=== PATIENT | male | born 1995 | race American Indian/Alaskan Native ===

== ENCOUNTER 2017-05-25 15:39 | Emergency (ER) | payer SELFPAY ==
[2017-05-25 15:59] VITALS: BP 117/55
--- NOTE | 2017-05-25 16:13 | Emergency Department Report ---
Suture/Staple Removal - [facility] Chief Complaint: Laceration/Recheck/Suture Stated Complaint: STAPLE REMOVAL Time Seen by Provider: 05/25/17 16:11 When Sutures or Solange Placed: 5-7 Days Ago ED Review of Systems ROS: Stated complaint: STAPLE REMOVAL Other details as noted in HPI Comment: All other systems reviewed and negative Constitutional: no symptoms reported Eyes: as per HPI ENT: as per HPI Respiratory: no symptoms reported Cardiovascular: as per HPI Endocrine: no symptoms reported, see HPI Gastrointestinal: as per HPI Genitourinary: as per HPI Musculoskeletal: as per HPI Skin: as per HPI Neurological: as per HPI Psychiatric: as per HPI Hematological/Lymphatic: as per HPI ED Past Medical Hx - Past Medical History Previous Medical History?: No - Surgical History Past Surgical History?: No - Social History Smoking Status: Never Smoker Substance Use Type: None Suture Removal Exam - Exam General: Vital signs noted. No distress. Alert and acting appropriately. Wound: No Pathologic Erythema, No Tenderness, No Drainage, No Pus, No Wound Dehiscence Other Systems: All other systems reviewed and are unremarkable. ED Course Vital Signs 05/25/17 15:57 Temperature 98.5 F Pulse Rate 69 Respiratory 18 Rate Blood Pressure 117/55 O2 Sat by Pulse 97 Oximetry - Reevaluation(s) Reevaluation #1: 05/25/17 16:12 suture removal wo diff ED Recheck MDM - Medical Decision Making suture removal Critical care attestation.: If time is entered above; I have spent that time in minutes in the direct care of this critically ill patient, excluding procedure time. ED Disposition Clinical Impression: Removal of staple Disposition: DC-01 TO HOME OR SELFCARE Is pt being admited?: No Does the pt Need Aspirin: No Condition: Stable Instructions: Staple Care (ED) Time of Disposition: 16:12
== END 2017-05-25 16:18 | disposition home or self-care (01) ==
LOC: ED 15:39
DX: S01.91XD Laceration without foreign body of unspecified part of head, subsequent encounter (principal); X58.XXXD Exposure to other specified factors, subsequent encounter

== ENCOUNTER 2017-10-21 12:07 | Emergency (ER) | payer OTHER ==
[2017-10-21 13:20] VITALS: BP 142/60
--- NOTE | 2017-10-21 14:52 | Emergency Department Report ---
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 Patient stated he has this since he was 16 years old. Patient denies any pain. Patient denies any symptoms. Patient denies any chest pain, shortness of breathe, fever, chills, headache, nausea, vomiting, abdominal pain, mastoid tenderness, or tragus pain. Patient denies any hearing changes or earache. Patient denies any allergies or significant PMH. MD complaint: other (posterior auricular swelling) -: year(s) Severity scale (0 -10): 0 Improves with: none Worsens with: none Associated Symptoms: denies: fever, cough, gum swelling, toothache, pain with swallowing, sore throat, tinnitus, hearing loss, discharge from ear, rhinorrhea - Related Data Allergies Allergy/AdvReac Type Severity Reaction Status Date / Time No Known Allergies Allergy Unverified 05/25/17 15:57 ED Dental HPI - General Chief complaint: Earache Stated complaint: SWOLLEN EAR Time Seen by Provider: 10/21/17 14:51 Source: patient Mode of arrival: Ambulatory Limitations: No Limitations - Related Data Allergies Allergy/AdvReac Type Severity Reaction Status Date / Time No Known Allergies Allergy Unverified 05/25/17 15:57 ED Review of Systems ROS: Stated complaint: SWOLLEN EAR Other details as noted in HPI Constitutional: denies: chills, fever Eyes: denies: eye pain, eye discharge, vision change ENT: denies: ear pain, throat pain Respiratory: denies: cough, shortness of breath, wheezing Cardiovascular: denies: chest pain, palpitations Endocrine: no symptoms reported Gastrointestinal: denies: abdominal pain, nausea, diarrhea Genitourinary: denies: urgency, dysuria Musculoskeletal: denies: back pain, joint swelling, arthralgia Skin: denies: rash, lesions Neurological: denies: headache, weakness, paresthesias Psychiatric: denies: anxiety, depression Hematological/Lymphatic: denies: easy bleeding, easy bruising ED Past Medical Hx - Past Medical History Previous Medical History?: No - Surgical History Past Surgical History?: No - Social History Smoking Status: Never Smoker Substance Use Type: None ED Physical Exam - General Limitations: No Limitations General appearance: alert, in no apparent distress - Head Head exam: Present: atraumatic, normocephalic - Eye Eye exam: Present: normal appearance Pupils: Present: normal accommodation - ENT ENT exam: Present: normal exam, normal orophraynx, mucous membranes moist, TM's normal bilaterally, normal external ear exam - Neck Neck exam: Present: normal inspection, tenderness, full ROM, lymphadenopathy ( bilateral posterior auricular lymph node. Mobile and nontender. No abscess or flutance noted. No induration noted.). Absent: meningismus, thyromegaly - Respiratory Respiratory exam: Present: normal lung sounds bilaterally. Absent: respiratory distress, wheezes, rales, rhonchi, stridor, chest wall tenderness, accessory muscle use, decreased breath sounds, prolonged expiratory - Cardiovascular Cardiovascular Exam: Present: regular rate, normal rhythm, normal heart sounds. Absent: bradycardia, tachycardia, irregular rhythm, systolic murmur, diastolic murmur, rubs, gallop - GI/Abdominal GI/Abdominal exam: Present: soft, normal bowel sounds - Rectal Rectal exam: Present: deferred - Extremities Exam Extremities exam: Present: normal inspection - Back Exam Back exam: Present: normal inspection - Neurological Exam Neurological exam: Present: alert, oriented X3 - Psychiatric Psychiatric exam: Present: normal affect, normal mood - Skin Skin exam: Present: warm, dry, intact, normal color. Absent: rash ED Course Vital Signs 10/21/17 13:16 Temperature 98.1 F Pulse Rate 77 Respiratory 16 Rate Blood Pressure 142/60 O2 Sat by Pulse 98 Oximetry - Reevaluation(s) Reevaluation #1: 10/21/17 16:30 Patient is speaking in full sentences with no signs of distress noted. ED Medical Decision Making - Medical Decision Making This is a 22-year-old male that presents with bilateral posterior auricular lymphadenopathy. Patient is stable and was examined by me. Upon exam, there is no abnormalities. Normal ENT exam. Patient was instructed and referred to a PCP for further evaluation and blood testing. At time of discharge, the patient does not seem toxic or ill in appearance. No acute signs of distress noted. Patient agrees to discharge treatment plan of care. No further questions noted by the patient. Critical care attestation.: If time is entered above; I have spent that time in minutes in the direct care of this critically ill patient, excluding procedure time. ED Disposition Clinical Impression: Posterior auricular lymphadenopathy Disposition: DC- TO HOME OR SELFCARE Is pt being admited?: No Does the pt Need Aspirin: No Condition: Stable Instructions: Lymphadenopathy (ED) Additional Instructions: Follow-up with a primary care doctor in 3-5 days or if symptoms worsen and continue return to emergency room as soon as possible. Referrals: PRIMARY CARE, [Primary Care Provider] - 3-5 Days LELE SCOTT MD [Staff Physician] - 3-5 Days LUCHO BARKLEY MD [Staff Physician] - 3-5 Days [facility] [Outside] - 3-5 Days [facility] [Outside] - 3-5 Days JACQUELINE BENSON MD [Staff Physician] - 3-5 Days Forms: Work/School Release Form(ED)
== END 2017-10-21 16:42 | disposition home or self-care (01) ==
LOC: ED 12:07
DX: R59.0 Localized enlarged lymph nodes (principal)
CPT/HCPCS: 99282

== ENCOUNTER 2018-03-07 21:21 | Emergency (ER) | payer SELFPAY ==
[2018-03-07 22:04] LABS: Basophils # (Auto) 0.1 K/mm3 (0.0-0.1); Basophils % (Auto) 0.6 % (0.0-1.8); Eosinophils # (Auto) 0.2 K/mm3 (0.0-0.4); Eosinophils % (Auto) 1.9 % (0.0-4.3); Hematocrit 39.7 % (35.5-45.6); Hemoglobin 14.1 gm/dl (11.8-15.2); Lymphocytes # (Auto) 2.1 K/mm3 (1.2-5.4); Lymphocytes % (Auto) 23.9 % (13.4-35.0); Mean Corpuscular HGB Conc 36 % (32-34); Mean Corpuscular Hemoglobin 30 pg (28-32); Mean Corpuscular Volume 83 fl (84-94); Monocytes # (Auto) 0.6 K/mm3 (0.0-0.8); Monocytes % (Auto) 7.1 % (0.0-7.3); Platelet Count 221 K/mm3 (140-440); Red Blood Count 4.76 M/mm3 (3.65-5.03); Red Cell Distribution Width 14.3 % (13.2-15.2)
[2018-03-07 22:24] LABS: BUN/Creatinine Ratio 7; Blood Urea Nitrogen 8 mg/dL (9-20); Calcium 9.3 mg/dL (8.4-10.2); Hemolysis Index 3
[2018-03-07 23:25] LABS: Amphetamine Screen,Urine PRESUMPTIVE NEGATIVE; Benzodiazepines Screen,Urine PRESUMPTIVE NEGATIVE; Cocaine Screen,Urine PRESUMPTIVE NEGATIVE; Methadone Screen,Urine PRESUMPTIVE NEGATIVE; Opiate Screen,Urine PRESUMPTIVE NEGATIVE
--- NOTE | 2018-03-08 00:05 | XRay Report ---
FINAL REPORT PROCEDURE: XR CHEST ROUTINE 2V TECHNIQUE: PA and lateral chest radiographs were obtained. CPT 25610 HISTORY: palpitations COMPARISON: No prior studies are available for comparison. FINDINGS: Heart: Normal. Mediastinum/Vessels: Normal. Lungs/Pleural space: Normal. Bony thorax: No acute osseous abnormality. Other: IMPRESSION: Normal examination.
[2018-03-08 00:06] LABS: Cannabinoid Screen,Urine PRESUMPTIVE POSITIVE
--- NOTE | 2018-03-08 00:39 | Emergency Department Report ---
ED Palpitations HPI - General Chief Complaint: Arrhythmia/Palpitations Stated Complaint: ELEVATED HR Time Seen by Provider: 03/07/18 23:04 Source: patient Mode of arrival: Ambulatory Limitations: No Limitations - Related Data Allergies Allergy/AdvReac Type Severity Reaction Status Date / Time No Known Allergies Allergy Unverified 05/25/17 15:57 ED Review of Systems ROS: Stated complaint: ELEVATED HR Other details as noted in HPI ED Past Medical Hx - Past Medical History Previous Medical History?: No - Surgical History Past Surgical History?: No - Social History Smoking Status: Never Smoker Substance Use Type: None, Marijuana ED Physical Exam - General Limitations: No Limitations ED Course Vital Signs 03/07/18 03/07/18 03/07/18 21:39 23:01 23:08 Temperature 98.8 F Pulse Rate 117 H 82 Respiratory 18 18 Rate Blood Pressure 122/61 126/69 O2 Sat by Pulse 100 98 100 Oximetry ED Medical Decision Making - Lab Data Result diagrams: 03/07/18 21:50 03/07/18 21:50 Laboratory Results - last 24 hr 03/07/18 03/07/18 03/07/18 21:50 21:50 23:14 WBC 8.9 RBC 4.76 Hgb 14.1 Hct 39.7 MCV 83 L MCH 30 MCHC 36 H RDW 14.3 Plt Count 221 Lymph % (Auto) 23.9 Irion % (Auto) 7.1 Eos % (Auto) 1.9 Baso % (Auto) 0.6 Lymph # 2.1 Irion # 0.6 Eos # 0.2 Baso # 0.1 Seg Neutrophils % 66.5 Seg Neutrophils # 5.9 D-Dimer < 135 Sodium 140 Potassium 3.8 Chloride 103.5 Carbon Dioxide 25 Anion Gap 15 BUN 8 L Creatinine 1.1 Estimated GFR > 60 BUN/Creatinine Ratio 7 Glucose 170 H Calcium 9.3 Troponin T < 0.010 Urine Opiates Screen Urine Methadone Screen Ur Barbiturates Screen Ur Phencyclidine Scrn Ur Amphetamines Screen U Benzodiazepines Scrn Urine Cocaine Screen U Marijuana (THC) Screen Drugs of Abuse Note Plasma/Serum Alcohol 03/07/18 03/07/18 23:14 Unknown WBC RBC Hgb Hct MCV MCH MCHC RDW Plt Count Lymph % (Auto) Irion % (Auto) Eos % (Auto) Baso % (Auto) Lymph # Irion # Eos # Baso # Seg Neutrophils % Seg Neutrophils # D-Dimer Sodium Potassium Chloride Carbon Dioxide Anion Gap BUN Creatinine Estimated GFR BUN/Creatinine Ratio Glucose Calcium Troponin T Urine Opiates Screen Presumptive negative Urine Methadone Screen Presumptive negative Ur Barbiturates Screen Presumptive negative Ur Phencyclidine Scrn Presumptive negative Ur Amphetamines Screen Presumptive negative U Benzodiazepines Scrn Presumptive negative Urine Cocaine Screen Presumptive negative U Marijuana (THC) Screen Presumptive positive Drugs of Abuse Note Disclamer Plasma/Serum Alcohol < 0.01 - EKG Data Rate: tachycardia - EKG Data Interpretation: no acute changes - Radiology Data Radiology results: report reviewed - Medical Decision Making Patient comfortable. Plan discharge with outpatient follow up. Return if worsening. Critical care attestation.: If time is entered above; I have spent that time in minutes in the direct care of this critically ill patient, excluding procedure time. ED Disposition Clinical Impression: Marijuana abuse Disposition: DC-01 TO HOME OR SELFCARE Is pt being admited?: No Condition: Stable Instructions: Cannabis Abuse (ED) Referrals: PRIMARY CARE [Primary Care Provider] - 2-3 Days [facility][Note 3] [Outside] - 2-3 Days [facility] [Outside] - 2-3 Days Time of Disposition: 00:38
[2018-03-08 01:02] VITALS: BP 132/67
== END 2018-03-08 01:33 | disposition home or self-care (01) ==
LOC: ED 21:21
DX: R00.0 Tachycardia, unspecified (principal); F12.10 Cannabis abuse, uncomplicated; Z79.899 Other long term (current) drug therapy
CPT/HCPCS: 36415; 71046; 80048; 80307; 84484; 85025; 85379; 93005; 93010; 99284; G0480; 80320

== ENCOUNTER 2018-04-15 22:43 | Emergency (ER) | payer SELFPAY ==
[2018-04-16 00:47] LABS: Eosinophils # (Auto) 0.1 K/mm3 (0.0-0.4); Eosinophils % (Auto) 3.2 % (0.0-4.3); Hematocrit 41.7 % (35.5-45.6); Hemoglobin 14.6 gm/dl (11.8-15.2); Lymphocytes # (Auto) 1.6 K/mm3 (1.2-5.4); Lymphocytes % (Auto) 36.2 % (13.4-35.0); Mean Corpuscular HGB Conc 35 % (32-34); Mean Corpuscular Hemoglobin 30 pg (28-32); Mean Corpuscular Volume 85 fl (84-94); Monocytes # (Auto) 0.7 K/mm3 (0.0-0.8); Monocytes % (Auto) 15.3 % (0.0-7.3); Platelet Count 154 K/mm3 (140-440); Red Blood Count 4.91 M/mm3 (3.65-5.03); Red Cell Distribution Width 14.5 % (13.2-15.2)
[2018-04-16 01:03] LABS: BUN/Creatinine Ratio 9; Blood Urea Nitrogen 8 mg/dL (9-20); Calcium 9.1 mg/dL (8.4-10.2); Hemolysis Index 2
--- NOTE | 2018-04-16 07:40 | Emergency Department Report ---
ED General Adult HPI - General Chief complaint: Chest Pain Stated complaint: JITTERY FEELING Time Seen by Provider: 04/16/18 06:52 Source: patient Mode of arrival: Ambulatory Limitations: No Limitations - History of Present Illness Initial comments: Patient presents to the emergency department with chief complaint of heart palpitations and chest pain started while at work. 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 Patient states that chest pain was located in the left side of his chest without any radiation and he states that it felt like his heart was beating out of his chest. Patient states he works third shift at work and only gets home and goes to sleep around 9:00 only to awaken and 11:00. He states he probably takes another 2 hour nap on the day but states he does not sleep well. Patient denies any increased caffeine use or any [id number] supplements or illicit drug use -: Sudden Location: chest Radiation: non-radiation Severity scale (0 -10): 0 Consistency: now resolved Improves with: none Associated Symptoms: denies other symptoms Treatments Prior to Arrival: none - Related Data Allergies Allergy/AdvReac Type Severity Reaction Status Date / Time No Known Allergies Allergy Unverified 05/25/17 15:57 ED Review of Systems ROS: Stated complaint: JITTERY FEELING Other details as noted in HPI Comment: All other systems reviewed and negative Constitutional: denies: chills, fever Eyes: denies: eye pain, eye discharge, vision change ENT: denies: ear pain, throat pain Respiratory: denies: cough, shortness of breath, wheezing Cardiovascular: chest pain, palpitations Endocrine: no symptoms reported Gastrointestinal: denies: abdominal pain, nausea, diarrhea Genitourinary: denies: urgency, dysuria Musculoskeletal: denies: back pain, joint swelling, arthralgia Skin: denies: rash, lesions Neurological: denies: headache, weakness, paresthesias Psychiatric: denies: anxiety, depression Hematological/Lymphatic: denies: easy bleeding, easy bruising ED Past Medical Hx - Past Medical History Previous Medical History?: No - Surgical History Past Surgical History?: No - Social History Smoking Status: Never Smoker Substance Use Type: None ED Physical Exam - General Limitations: No Limitations General appearance: alert, in no apparent distress - Head Head exam: Present: atraumatic, normocephalic - Eye Eye exam: Present: normal appearance, PERRL, EOMI - ENT ENT exam: Present: mucous membranes moist - Neck Neck exam: Present: normal inspection - Respiratory Respiratory exam: Present: normal lung sounds bilaterally. Absent: respiratory distress, wheezes, rales - Cardiovascular Cardiovascular Exam: Present: regular rate, normal rhythm. Absent: systolic murmur, diastolic murmur, rubs, gallop - GI/Abdominal GI/Abdominal exam: Present: soft, normal bowel sounds. Absent: distended, tenderness - Rectal Rectal exam: Present: deferred - Extremities Exam Extremities exam: Present: normal inspection - Back Exam Back exam: Present: normal inspection - Neurological Exam Neurological exam: Present: alert, oriented X3, CN II-XII intact. Absent: motor sensory deficit - Psychiatric Psychiatric exam: Present: normal affect, normal mood - Skin Skin exam: Present: warm, dry, intact, normal color. Absent: rash ED Course Vital Signs 04/15/18 04/15/18 04/16/18 22:58 23:43 02:32 Temperature 98.6 F 98.6 F 99.0 F Pulse Rate 89 89 62 Respiratory 18 Rate Blood Pressure 140/64 140/64 129/66 O2 Sat by Pulse 99 99 100 Oximetry ED Medical Decision Making - Lab Data Result diagrams: 04/16/18 00:04 04/16/18 00:04 - EKG Data EKG shows normal: sinus rhythm Rate: normal - EKG Data 04/16/18 07:39 EKG is sinus rhythm with ST elevation likely due to early repol No STEMI Normal intervals Normal axis rate 65 - Medical Decision Making Discussed but his sleep patterns with patient Discussed stress management with the patient Discussed results with the patient Critical care attestation.: If time is entered above; I have spent that time in minutes in the direct care of this critically ill patient, excluding procedure time. ED Disposition Clinical Impression: Nonspecific chest pain, Heart palpitations Disposition: DC-01 TO HOME OR SELFCARE Is pt being admited?: No Does the pt Need Aspirin: No Condition: Stable Instructions: Noncardiac Chest Pain (ED), Chest Pain (ED), Palpitations (ED) Additional Instructions: return if worse Referrals: PRIMARY CARE,MD [Primary Care Provider] - 3-5 Days [facility] [Outside] - 3-5 Days [facility] [Provider Group] - 3-5 Days [facility] [Provider Group] - 3-5 Days Time of Disposition: 08:06
--- NOTE | 2018-04-16 08:00 | XRay Report ---
AP CHEST: HISTORY: chest pain AP view of the chest demonstrates a normal mediastinal and cardiac contour with clear lungs and normal bony and soft tissue structures. IMPRESSION: Unremarkable AP chest.
[2018-04-16 08:28] VITALS: BP 126/69
== END 2018-04-16 08:27 | disposition home or self-care (01) ==
LOC: ED 22:43
DX: R07.89 Other chest pain (principal); R00.2 Palpitations
CPT/HCPCS: 36415; 71045; 80048; 84484; 85025; 93005; 93010; 99284

== ENCOUNTER 2021-05-25 15:25 | Emergency (ER) | payer OTHER ==
[2021-05-25] MEDS ORDERED: ACETAMINOPHEN 325 MG TAB PO ONE (16:30)
--- NOTE | 2021-05-25 16:30 | Emergency Department Report ---
ED Head Trauma HPI - General Chief complaint: Head Injury Stated complaint: NAUSEA Time Seen by Provider: 05/25/21 15:50 Source: patient Mode of arrival: Ambulatory Limitations: No Limitations - History of Present Illness Initial comments: 26-year-old male presents to the ER today for evaluation after head injury at work. 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 He states that the locker was a metal walker and weighed about 30 to 40 pounds. He states that when it fell onto his head it pushed him forward onto the desk but he did not fall completely noted he hit the front of his head. He denies any LOC. He states that since the head injury he has been having occipital headache, feeling dizzy and having symptoms of nausea. He denies any vomiting, vision changes, speech changes, focal weakness, numbness, tingling, neck pain or any additional symptoms. He has not taken anything for the headache since injury. He denies any significant past medical history and states that he does not take any medications on a daily basis. MD Complaint: head injury, head pain, other (nauseous, dizzy, headache ) -: Sudden, This afternoon - Related Data Previous Rx's Medication Instructions Recorded Last Taken Type Dicyclomine [Bentyl] 10 mg PO QID #15 capsule 06/11/18 Unknown Rx Pantoprazole [Protonix TAB] 20 mg PO QDAY #30 tablet. 06/11/18 Unknown Rx Azithromycin [Zithromax Z-ROBEL] 250 mg PO DAILY 5 Days #1 pkg 06/23/18 Unknown Rx Cetirizine HCl [ZyrTEC] 10 mg PO QAM 14 Days #14 capsule 06/23/18 Unknown Rx Fluticasone [Flonase] 1 spray NS QDAY 14 Days #1 bottle 06/23/18 Unknown Rx methylPREDNISolone [Medrol Dose 4 mg PO DAILY #1 tab.ds.pk 06/23/18 Unknown Rx Robel] Acetaminophen [Acetaminophen 8 650 mg PO Q8H #30 tablet.er 05/25/21 Unknown Rx Hour] Ondansetron [Zofran Odt] 4 mg PO Q8HR PRN #15 tab.rapdis 05/25/21 Unknown Rx Allergies/Adverse reactions: Allergies Allergy/AdvReac Type Severity Reaction Status Date / Time No Known Allergies Allergy Unverified 05/25/21 15:31 ED Review of Systems ROS: Stated complaint: NAUSEA Other details as noted in HPI Comment: All other systems reviewed and negative Constitutional: no symptoms reported Eyes: denies: eye pain, eye discharge, vision change ENT: denies: ear pain, throat pain, dental pain, hearing loss, epistaxis, congestion Respiratory: denies: cough, shortness of breath, SOB with exertion, SOB at rest, wheezing Cardiovascular: denies: chest pain, palpitations, dyspnea on exertion, edema, syncope, paroxysmal nocturnal dyspnea Gastrointestinal: nausea Neurological: headache, other (dizzy). denies: numbness, paresthesias, confusi on, abnormal gait, vertigo Psychiatric: denies: anxiety, depression, auditory hallucinations, visual hallucinations, homicidal thoughts, suicidal thoughts Hematological/Lymphatic: denies: easy bleeding, easy bruising, swollen glands ED Past Medical Hx - Past Medical History Hx Asthma: No Additional medical history: Bronchiolitis as a child - Social History Smoking Status: Never Smoker - Medications Home Medications: Home Medications Medication Instructions Recorded Confirmed Last Taken Type Dicyclomine [Bentyl] 10 mg PO QID #15 capsule 06/11/18 Unknown Rx Pantoprazole [Protonix TAB] 20 mg PO QDAY #30 tablet. 06/11/18 Unknown Rx Azithromycin [Zithromax Z-ROBEL] 250 mg PO DAILY 5 Days #1 pkg 06/23/18 Unknown Rx Cetirizine HCl [ZyrTEC] 10 mg PO QAM 14 Days #14 capsule 06/23/18 Unknown Rx Fluticasone [Flonase] 1 spray NS QDAY 14 Days #1 bottle 06/23/18 Unknown Rx methylPREDNISolone [Medrol Dose 4 mg PO DAILY #1 tab.ds.pk 06/23/18 Unknown Rx Robel] Acetaminophen [Acetaminophen 8 650 mg PO Q8H #30 tablet.er 05/25/21 Unknown Rx Hour] Ondansetron [Zofran Odt] 4 mg PO Q8HR PRN #15 tab.rapdis 05/25/21 Unknown Rx ED Physical Exam - General Limitations: No Limitations General appearance: alert, in no apparent distress, anxious - Head Head exam: Present: atraumatic, normal inspection, other (Mild tenderness to palpation to the right occipital scalp but no obvious signs of trauma) - Eye Eye exam: Present: normal appearance, PERRL, EOMI Pupils: Present: normal accommodation - ENT ENT exam: Present: normal exam, TM's normal bilaterally - Neck Neck exam: Present: normal inspection, full ROM. Absent: tenderness - Respiratory Respiratory exam: Present: normal lung sounds bilaterally. Absent: respiratory distress - Cardiovascular Cardiovascular Exam: Present: regular rate, normal rhythm, normal heart sounds - Neurological Exam Neurological exam: Present: alert, oriented X3, CN II-XII intact, normal gait. Absent: motor sensory deficit - Psychiatric Psychiatric exam: Present: normal affect, normal mood - Skin Skin exam: Present: intact ED Course Vital Signs 05/25/21 05/25/21 05/25/21 15:27 16:39 16:40 Temperature 97.6 F Pulse Rate 83 68 Respiratory 16 16 18 Rate Blood Pressure 129/72 Blood Pressure 117/70 [Left] O2 Sat by Pulse 100 99 Oximetry - Radiology Data Radiology results: report reviewed Patient: LOVELY CARRERO R#: [id number] : 1995 Acct:[id number] Age/Sex: 26 / M ADM Date: 05/25/21 Loc: ED Attending Dr: Ordering Physician: CINDA KAT Date of Service: 05/25/21 Procedure(s): CT head/brain wo con Accession Number(s): [id number] cc: CINDA KAT NONENHANCED CT SCAN OF THE HEAD: INDICATION / CLINICAL INFORMATION: 26 years Male; head injury/dizzy/[place]. TECHNIQUE: Routine CT head without contrast. All CT scans at this location are performed using CT dose reduction for ALARA by means of automated exposure control. COMPARISON: None. FINDINGS: BRAIN / INTRACRANIAL CONTENTS: No intracranial sequela from the trauma; no scalp hematoma; no air- fluid level in the visualized portions of the paranasal sinuses No acute hemorrhage, mass effect, midline shift, hydrocephalus, or acute, large territorial infarct. No chronic infarct or focal atrophy. Normal brain volume and ventricular/sulcal size for age. No significant white matter abnormality. CRANIOCERVICAL JUNCTION: No significant abnormality. ORBITS: No significant abnormality of visualized orbits. SINUSES / MASTOIDS: No significant abnormality of the visualized paranasal sinuses or mastoid air cells. ADDITIONAL FINDINGS: None. IMPRESSION: No intracranial sequela from the trauma; no focal parenchymal lesion Signer Name: Tiara Turner MD Signed: 05/25/2021 5:55 PM Workstation Name: [id number] Transcribed By: TAHIR Dictated By: Tiara Miguel MD Electronically Authenticated By: Tiara Miguel MD Signed Date/Time: 05/25/211754 DD/ 52 TD/TT: - Medical Decision Making Head CT shows nothing acute. Patient currently sitting in the recliner, he is not in any acute distress and he has been observed on his phone the entire time that he has been in the ER. He is currently awake alert and oriented x3. He is neurologically intact with a normal gait. He is not toxic or ill-appearing. Discussed head CT results with patient. He will be given referral formation for follow-up with PCP and or neurologist especially if symptoms persist. Recommend Tylenol as needed for pain. Patient expressed understanding for instructions and agree with plan. Patient was stable at time of discharge - Differential Diagnosis Intracranial bleed, skull fracture, concussion, contusion Critical care attestation.: If time is entered above; I have spent that time in minutes in the direct care of this critically ill patient, excluding procedure time. ED Disposition Clinical Impression: Contusion of scalp, Head injury Disposition: 01 HOME / SELF CARE / HOMELESS Is pt being admited?: No Does the pt Need Aspirin: No Condition: Stable Instructions: Head Injury, Adult, Facial or Scalp Contusion, [id number] Additional Instructions: I recommend that you take the Tylenol as prescribed to help with any headache and pain. Take the Zofran with your nausea. Recommend rest for the next couple days and lots of fluids. Follow-up with PCP and or neurology/neurosurgery listed on your discharge instructions in the next 1 to 2 weeks. Return to the ER if your symptoms worsens or changes in any way Prescriptions: Acetaminophen [Acetaminophen 8 Hour] 650 mg PO Q8H #30 tablet.er Ondansetron [Zofran Odt] 4 mg PO Q8HR PRN #15 tab.rapdis PRN Reason: Nausea Referrals: [facility] [Provider Group] - 3-5 Days (Primary care clinic) [facility] [Provider Group] - 3-5 Days (Neurology/neurosurgery) Forms: Work/School Release Form(ED) Time of Disposition: 18:21 Print Language: POLISH
[2021-05-25 16:43] VITALS: BP 129/72
--- NOTE | 2021-05-25 18:00 | Cat Scan Report ---
NONENHANCED CT SCAN OF THE HEAD: INDICATION / CLINICAL INFORMATION: 26 years Male; head injury/dizzy/[place]. TECHNIQUE: Routine CT head without contrast. All CT scans at this location are performed using CT dos e reduction for ALARA by means of automated exposure control. COMPARISON: None. FINDINGS: BRAIN / INTRACRANIAL CONTENTS: No intracranial sequela from the trauma; no scalp hematoma; no air-flu id level in the visualized portions of the paranasal sinuses No acute hemorrhage, mass effect, midline shift, hydrocephalus, or acute, large territorial infarct. No chronic infarct or focal atrophy. Normal brain volume and ventricular/sulcal size for age. No sig nificant white matter abnormality. CRANIOCERVICAL JUNCTION: No significant abnormality. ORBITS: No significant abnormality of visualized orbits. SINUSES / MASTOIDS: No significant abnormality of the visualized paranasal sinuses or mastoid air geri ls. ADDITIONAL FINDINGS: None. IMPRESSION: No intracranial sequela from the trauma; no focal parenchymal lesion Signer Name: Tiara Turner MD Signed: 05/25/2021 5:55 PM Workstation Name: [id number]
== END 2021-05-25 18:36 | disposition home or self-care (01) ==
LOC: ED 15:25
DX: S00.03XA Contusion of scalp, initial encounter (principal); Z79.899 Other long term (current) drug therapy; W22.8XXA Striking against or struck by other objects, initial encounter; Y93.89 Activity, other specified; Y92.89 Other specified places as the place of occurrence of the external cause; Y99.0 Civilian activity done for income or pay
CPT/HCPCS: 70450; 99284